=== PATIENT | male | born 1990 | race Hispanic/Latino ===

== ENCOUNTER → 2023-01-15 | Outpatient (CLI) | payer BC, OTHER ==
[~2023-01-15] MED LIST: IOHEXOL 350 MG/ML 100ML INFUS..BTL IV ONE
== END | disposition home or self-care (01) ==
LOC: RAH 09:03
PROVIDERS: ATTEND Student in an Organized Health Care Education/Training Program
DX: Q25.1 Coarctation of aorta (principal); Z95.5 Presence of coronary angioplasty implant and graft
CPT/HCPCS: 71275; Q9967

== ENCOUNTER → 2023-11-20 | Outpatient (CLI) | payer OTHER | END | disposition home or self-care (01) | LOC: SHCH 08:01 | PROVIDERS: ATTEND Student in an Organized Health Care Education/Training Program | DX: I77.1 Stricture of artery (principal); Z95.828 Presence of other vascular implants and grafts | CPT/HCPCS: 93880 ==

== ENCOUNTER → 2023-11-23 | Outpatient (CLI) | payer OTHER | END | disposition home or self-care (01) | LOC: SHCH 07:56 | PROVIDERS: ATTEND Student in an Organized Health Care Education/Training Program | DX: I07.1 Rheumatic tricuspid insufficiency (principal); R01.0 Benign and innocent cardiac murmurs; Z95.5 Presence of coronary angioplasty implant and graft; Z98.890 Other specified postprocedural states | CPT/HCPCS: 93306 ==

== ENCOUNTER → 2025-02-21 | Outpatient (CLI) | payer OTHER ==
[~2025-02-21] MED LIST changes: -IOHEXOL 350 MG/ML 100ML INFUS..BTL IV ONE; +IOHEXOL-350 75 ML VIAL IV ONE
--- NOTE | 2025-02-21 14:53 | HMCIMG ---
CT ANGIO CHEST/THORAX AAA HISTORY: Abdominal aortic aneurysm COMPARISON: 01/15/2023 TECHNIQUE: CT angiography of the chest was performed. The study was performed using angiographic technique with maximum intensity projection reconstruction images. Patient was given 35 cc of Omnipaque through intravenous route. FINDINGS: No CT evidence of filling defect is seen to suggest pulmonary embolus. No CT evidence of aortic dissection is seen. There are stents noted in the aortic arch proximal and distal to the origin of the left, subclavian artery. These are grossly patent with contrast opacification. Ascending thoracic aorta measures 3.2 cm. Descending thoracic aorta measures 2.1 cm. There is mild dextroscoliosis. Minimal narrowing is again seen at the distal aortic arch measuring 11 mm but patent. No evidence of parenchymal disease is seen. No CT evidence of pleural effusion or pericardial effusion is seen. The heart is enlarged. No evidence of adrenal mass is seen. Degenerative changes of the spine are noted. IMPRESSION: 1. Patent aortic stents at the aortic arch as described above. No evidence of thoracic aortic aneurysm is seen. CT was performed with one or more following dose reduction techniques: automated exposure control, adjustment of the mA and kv according to patient's size, or use of a iterative reconstruction technique. CT was performed with one or more following dose reduction techniques: automated exposure control, adjustment of the mA and kv according to patient's size, or use of a iterative reconstruction technique.
--- NOTE | 2025-02-21 15:23 | HMCIMG ---
CT ANGIO NECK HISTORY: Abdominal aorta aneurysm COMPARISON: None TECHNIQUE: CT angiography of the neck was performed. The study was performed using angiographic technique with maximum intensity projection reconstruction images. FINDINGS: Parapharyngeal fat planes are preserved bilaterally. The airway is patent. Normal enhancement of the thyroid gland is noted. Visualized portion of the lung apices are unremarkable. The common, internal and external carotid arteries are visualized. No hemodynamically significant lesion is seen of either extracranial carotid artery system. Right vertebral artery is seen with antegrade flow. Left vertebral artery is not seen from the origin may be related to occlusion. IMPRESSION: CTA Neck 1. Left vertebral artery is not seen may be related to occlusion. From the origin No hemodynamically significant lesion is seen of either extracranial carotid artery system. CT was performed with one or more following dose reduction techniques: automated exposure control, adjustment of the mA and kv according to patient's size, or use of a iterative reconstruction technique.
== END | disposition home or self-care (01) ==
LOC: RAH 10:52
PROVIDERS: ATTEND Internal Medicine Cardiovascular Disease
DX: I51.7 Cardiomegaly (principal); M47.814 Spondylosis without myelopathy or radiculopathy, thoracic region; M41.84 Other forms of scoliosis, thoracic region; I71.40 Abdominal aortic aneurysm, without rupture, unspecified
CPT/HCPCS: 71275; 70498; Q9967